=== PATIENT | female | born 1965 | race Caucasian/White ===

== ENCOUNTER 2016-11-30 18:19 | Emergency (ER) | payer BC ==
[~2016-11-30] VITALS: Ht 165.1 cm; Wt 88.0 kg
[~2016-11-30 18:19] MED LIST: BENICAR HCT 201 EACH PO; CIPRO500 MG PO; CRESTOR20 MG PO; HYDROCODON-ACE1 EAC7 PO; INVOKANA300 MG PO; JENTADUETO 2.51 EAC2 PO; PERCOCET 5/31 TABLET PO
[2016-11-30 22:03] LABS: ADD MIUA? YES; BILIRUBIN NEGATIVE; BLOOD SMALL; COLOR YELLOW ((YELLOW)); GLUCOSE (STRIP) >=500; KETONES 20; LEUKOCYTES LARGE; NITRITE NEGATIVE; PROTEIN (STRIP) NEGATIVE; SPECIFIC GRAVITY 1.033 (1.000-1.030); UROBILINOGEN 0.2 MG/DL (0.2-1.0)
[2016-11-30 22:05] LABS: HEMATOCRIT 42.8 % (36.0-46.0); MCH 28.7 PG (29.0-34.0); MCHC 33.4 G/DL (30.0-36.0); MCV 85.8 FL (83-99); MEAN PLAT.VOLUME 11.2 uM^3 (9.5-12.4); PLATELET COUNT 392 K/uL (156-360); RBC DIS.WIDTH-CV 11.5 % (11.8-14.6); RBC DIS.WIDTH-SD 35.9 % (39-53); RED BLOOD COUNT 4.99 M/uL (3.80-5.20); WHITE BLOOD COUNT 11.2 K/uL (4.1-10.2)
[2016-11-30 22:13] LABS: BACTERIA RARE /HPF; BUDDING YEAST 1+; EPITHELIAL CELLS 1+ /HPF; MUCUS NONE SEEN /LPF
[2016-11-30 22:19] LABS: CHLORIDE 98 mEq/L (99-109); SODIUM 136 mEq/L (136-147)
[2016-11-30 22:21] LABS: GLUCOSE 246 mg/dL (70-99)
[2016-11-30 22:22] LABS: ANION GAP 15 MEQ/L (2-14)
[2016-11-30 22:23] LABS: TOTAL BILIRUBIN 0.4 mg/dL (0.0-1.0)
[2016-11-30 22:24] LABS: ALKALINE PHOSPHATASE 101 IU/L (3-129)
[2016-11-30 22:25] LABS: GFR ESTIMATE (CALCULATED) 55 mL/min/
[2016-11-30 22:26] LABS: UREA NITROGEN (BUN) 21 mg/dL (9-23)
[2016-12-01] MEDS ORDERED: NYSTATIN60 GM TP (00:17)
[2016-12-01] MEDS ORDERED: VIBRAMYCIN100 MG PO (00:17)
[2016-12-01 00:39] VITALS: BP 152/890
[2016-12-02] MEDS ORDERED: FIORICET,ESG1 TABLET PO (19:02)
[2016-12-02] MEDS ORDERED: TOPAMAX50 MG PO (19:03)
[2016-12-02] MEDS ORDERED: PRINZIDE 20-121 EACH PO (19:03)
[2016-12-02] MEDS ORDERED: INVOKAMET 150-1 EACH PO (19:10)
== END 2016-12-01 00:41 | disposition home or self-care (01) ==
LOC: EME 18:19
PROVIDERS: Nurse Practitioner Family
DX: E11.628 Type 2 diabetes mellitus with other skin complications (principal); L03.113 Cellulitis of right upper limb; E11.65 Type 2 diabetes mellitus with hyperglycemia; B37.89 Other sites of candidiasis; R00.0 Tachycardia, unspecified; I10 Essential (primary) hypertension; E78.5 Hyperlipidemia, unspecified; Z79.84 Long term (current) use of oral hypoglycemic drugs; Z88.0 Allergy status to penicillin
CPT/HCPCS: 80053; 81003; 83605; 85027; 87040; 87077; 87186; 87801; 99281; 99284; J1885; J7030

== ENCOUNTER 2016-12-01 22:29 | Inpatient (IN) | payer BC ==
[~2016-12-01] VITALS: Ht 165.1 cm; Wt 87.5 kg
[~2016-12-01 22:29] MED LIST changes: +NYSTATIN60 GM TP; +VIBRAMYCIN100 MG PO
[2016-12-02 00:24] LABS: BASOPHIL COUNT 0.1 K/uL (0-0.1); EOSINOPHIL (%) 2.2 % (0-5); EOSINOPHIL COUNT 0.3 K/uL (0-0.3); HEMATOCRIT 37.3 % (36.0-46.0); IMMATURE GRANULOCYTE (%) 0.6 % (0.0-0.7); IMMATURE GRANULOCYTE COUNT 0.1 K/uL; INSTRUMENT ABS NEUTROPHIL CT 7.5 K/uL; LYMPHOCYTE COUNT 2.5 K/uL (1.0-2.8); MCH 28.8 PG (29.0-34.0); MCHC 33.8 G/DL (30.0-36.0); MCV 85.2 FL (83-99); MEAN PLAT.VOLUME 11.2 uM^3 (9.5-12.4); MONOCYTE (%) 8.4 % (3-12); NEUTROPHIL (%) 66.3 % (45-76); NEUTROPHIL COUNT 7.5 K/uL (1.8-6.4); PLATELET COUNT 364 K/uL (156-360); RBC DIS.WIDTH-CV 11.5 % (11.8-14.6); RBC DIS.WIDTH-SD 35.6 % (39-53); RED BLOOD COUNT 4.38 M/uL (3.80-5.20); WHITE BLOOD COUNT 11.3 K/uL (4.1-10.2)
[2016-12-02 00:37] LABS: CHLORIDE 100 mEq/L (99-109); POTASSIUM 3.7 mEq/L (3.7-5.4); SODIUM 134 mEq/L (136-147)
[2016-12-02 00:39] LABS: GLUCOSE 338 mg/dL (70-99)
[2016-12-02 00:41] LABS: ANION GAP 12 MEQ/L (2-14)
[2016-12-02 00:43] LABS: GFR ESTIMATE (CALCULATED) 55 mL/min/
[2016-12-02 00:44] LABS: UREA NITROGEN (BUN) 26 mg/dL (9-23)
[2016-12-02 03:52] LABS: POINT-OF-CARE METER ID UU13113702
[2016-12-02 05:00] VITALS: BP 105/62
[2016-12-02 07:17] LABS: POINT-OF-CARE METER ID UU14188577
[2016-12-02 08:04] VITALS: BP 138/82
[2016-12-02 11:08] VITALS: BP 135/85
[2016-12-02 15:50] VITALS: BP 127/83
[2016-12-02 16:44] LABS: POINT-OF-CARE METER ID UU14188577
[2016-12-02] MEDS ORDERED: FIORICET,ESG1 TABLET PO (19:02)
[2016-12-02] MEDS ORDERED: TOPAMAX50 MG PO (19:03)
[2016-12-02] MEDS ORDERED: PRINZIDE 20-121 EACH PO (19:03)
[2016-12-02] MEDS ORDERED: INVOKAMET 150-1 EACH PO (19:10)
[2016-12-02 20:00] VITALS: BP 144/88
[2016-12-02 23:55] VITALS: BP 112/57
[2016-12-03 08:15] VITALS: BP 129/67
[2016-12-03] MEDS ORDERED: ZOCOR40 MG PO (11:52)
[2016-12-03 15:51] VITALS: BP 137/86
[2016-12-03 21:53] LABS: POINT-OF-CARE METER ID UU14149397
[2016-12-03 23:48] VITALS: BP 122/74
[2016-12-04 07:02] LABS: POINT-OF-CARE METER ID UU14188577
[2016-12-04 07:47] VITALS: BP 127/79
[2016-12-04 11:54] LABS: POINT-OF-CARE METER ID UU14188577
[2016-12-04] MEDS ORDERED: INVOKAMET 150-1 EACH PO (12:11)
[2016-12-04 15:54] VITALS: BP 132/80
[2016-12-04 17:35] LABS: POINT-OF-CARE METER ID UU14188577
[2016-12-04 22:02] LABS: POINT-OF-CARE METER ID UU14188577
[2016-12-04 23:10] VITALS: BP 135/76
[2016-12-05 06:47] LABS: POINT-OF-CARE METER ID UU14162508
[2016-12-05 08:05] VITALS: BP 116/73
[2016-12-05 12:00] LABS: POINT-OF-CARE METER ID UU14162508
[2016-12-05] MEDS ORDERED: TRIAMCINOLONE A15 GM TP (14:20)
[2016-12-05] MEDS ORDERED: PREDNISONE10 MG PO (14:20)
[2016-12-05] MEDS ORDERED: KETOCONAZOLE60 GM TP (14:21)
[2016-12-05] MEDS ORDERED: CIPRO750 MG PO (14:22)
== END 2016-12-05 14:42 | disposition home or self-care (01) | DRG 868 ==
LOC: EME 22:29 → EDOF 12-02 02:05 → 3EAST 12-02 02:05 → 2EAST 12-04 22:55
PROVIDERS: Emergency Medicine; Internal Medicine
DX: B49 Unspecified mycosis (principal); B96.5 Pseudomonas (aeruginosa) (mallei) (pseudomallei) as the cause of diseases classified elsewhere; L03.113 Cellulitis of right upper limb; I10 Essential (primary) hypertension; L73.9 Follicular disorder, unspecified; M54.2 Cervicalgia; Z88.0 Allergy status to penicillin; R51 Headache; E11.65 Type 2 diabetes mellitus with hyperglycemia; E78.5 Hyperlipidemia, unspecified; E66.9 Obesity, unspecified; Z68.32 Body mass index [BMI] 32.0-32.9, adult; Z91.19 Patient's noncompliance with other medical treatment and regimen; B35.2 Tinea manuum
CPT/HCPCS: 73090; 73130; 80048; 80053; 81003; 82948; 83605; 85025; 85027; 87040; 87077; 87186; 87801; 99281; 99284; 99285; J0692; J1200; J1650; J1815; J1885; J2765; J2920; J7030; J7050; J7512; Q0177; S0073

== ENCOUNTER 2016-12-12 10:04 | Inpatient (IN) | payer BC ==
[~2016-12-12] VITALS: Ht 165.1 cm; Wt 78.9 kg
[~2016-12-12 10:04] MED LIST changes: +CIPRO750 MG PO; +FIORICET,ESG1 TABLET PO; +INVOKAMET 150-1 EACH PO; +KETOCONAZOLE60 GM TP; +PREDNISONE10 MG PO; +PRINZIDE 20-121 EACH PO; +TOPAMAX50 MG PO; +TRIAMCINOLONE A15 GM TP; +ZOCOR40 MG PO
[2016-12-12 12:03] LABS: HEMATOCRIT 45.7 % (36.0-46.0); MCH 28.5 PG (29.0-34.0); MCHC 33.7 G/DL (30.0-36.0); MCV 84.5 FL (83-99); MEAN PLAT.VOLUME 11.5 uM^3 (9.5-12.4); PLATELET COUNT 490 K/uL (156-360); RBC DIS.WIDTH-CV 11.6 % (11.8-14.6); RBC DIS.WIDTH-SD 35.1 % (39-53); RED BLOOD COUNT 5.41 M/uL (3.80-5.20); WHITE BLOOD COUNT 16.6 K/uL (4.1-10.2)
[2016-12-12 12:13] LABS: CHLORIDE 94 mEq/L (99-109); POTASSIUM 5.4 mEq/L (3.7-5.4); SODIUM 132 mEq/L (136-147)
[2016-12-12 12:17] LABS: ANION GAP 17 MEQ/L (2-14)
[2016-12-12 12:18] LABS: TOTAL BILIRUBIN 0.7 mg/dL (0.0-1.0)
[2016-12-12 12:19] LABS: ALKALINE PHOSPHATASE 103 IU/L (3-129); GFR ESTIMATE (CALCULATED) 36 mL/min/
[2016-12-12 12:20] LABS: UREA NITROGEN (BUN) 47 mg/dL (9-23)
[2016-12-12 12:23] LABS: GLUCOSE 414 mg/dL (70-99)
[2016-12-12 14:43] LABS: POINT-OF-CARE METER ID UU13113702
[2016-12-12] MEDS ORDERED: JENTADUETO 2.51 EAC2 PO (15:16)
[2016-12-12] MEDS ORDERED: CIPROFLOXACIN750 MG PO (15:17)
[2016-12-12] MEDS ORDERED: DEXILANT60 MG PO (15:19)
[2016-12-12] MEDS ORDERED: ONDANSETRON HCL4 MG PO (15:20)
[2016-12-12 17:30] VITALS: BP 121/85
[2016-12-12 19:45] VITALS: BP 111/64
[2016-12-12 21:53] LABS: POINT-OF-CARE METER ID UU13113725
[2016-12-12 23:20] VITALS: BP 105/59
[2016-12-13 04:10] VITALS: BP 120/84
[2016-12-13 06:22] LABS: POINT-OF-CARE METER ID UU13113725
[2016-12-13 06:39] LABS: HEMATOCRIT 39.8 % (36.0-46.0); MCH 29.3 PG (29.0-34.0); MCHC 34.4 G/DL (30.0-36.0); MEAN PLAT.VOLUME 11.7 uM^3 (9.5-12.4); PLATELET COUNT 377 K/uL (156-360); RBC DIS.WIDTH-CV 11.7 % (11.8-14.6); RBC DIS.WIDTH-SD 35.6 % (39-53); RED BLOOD COUNT 4.68 M/uL (3.80-5.20); WHITE BLOOD COUNT 13.3 K/uL (4.1-10.2)
[2016-12-13 07:10] VITALS: BP 123/84
[2016-12-13 07:18] LABS: ALKALINE PHOSPHATASE 81 IU/L (3-129); ANION GAP 11 MEQ/L (2-14); SAMPLE HEMOLYSIS CHECK 0; SAMPLE ICTERIC CHECK 0; SAMPLE LIPEMIA CHECK 0; SODIUM 131 MEQ/L (136-147); TOTAL BILIRUBIN 0.5 MG/DL (0.0-1.0); UREA NITROGEN (BUN) 32 mg/dL (9-23)
[2016-12-13 07:22] LABS: GFR ESTIMATE (CALCULATED) > 59 mL/min/; GLUCOSE 137 mg/dL (70-99)
[2016-12-13 07:23] LABS: CHLORIDE 98 MEQ/L (99-109); POTASSIUM 4.3 MEQ/L (3.7-5.4)
[2016-12-13 10:40] VITALS: BP 131/82
[2016-12-13 11:46] LABS: POINT-OF-CARE METER ID UU13113725
[2016-12-13 16:05] LABS: POINT-OF-CARE METER ID UU13113725
[2016-12-13 16:12] VITALS: BP 114/76
[2016-12-13 19:06] VITALS: BP 99/54
[2016-12-13 21:02] LABS: POINT-OF-CARE METER ID UU13113725
[2016-12-13 22:49] VITALS: BP 101/55
[2016-12-14 03:00] VITALS: BP 98/57
[2016-12-14 07:06] VITALS: BP 97/59
[2016-12-14 11:15] VITALS: BP 100/61
[2016-12-14 11:37] LABS: POINT-OF-CARE METER ID UU13113725
[2016-12-14 15:57] VITALS: BP 95/54
[2016-12-15 00:08] VITALS: BP 109/58
[2016-12-15 06:50] VITALS: BP 120/69
[2016-12-15 07:25] LABS: HEMATOCRIT 34.7 % (36.0-46.0); MCH 28.9 PG (29.0-34.0); MCHC 34.3 G/DL (30.0-36.0); MCV 84.2 FL (83-99); MEAN PLAT.VOLUME 11.3 uM^3 (9.5-12.4); PLATELET COUNT 308 K/uL (156-360); RBC DIS.WIDTH-CV 11.4 % (11.8-14.6); RBC DIS.WIDTH-SD 34.8 % (39-53); RED BLOOD COUNT 4.12 M/uL (3.80-5.20); WHITE BLOOD COUNT 9.1 K/uL (4.1-10.2)
[2016-12-15 07:27] LABS: POINT-OF-CARE METER ID UU13113725
[2016-12-15 08:23] LABS: ALKALINE PHOSPHATASE 75 IU/L (3-129); ANION GAP 11 MEQ/L (2-14); CHLORIDE 102 MEQ/L (99-109); GFR ESTIMATE (CALCULATED) > 59 mL/min/; POTASSIUM 4.3 MEQ/L (3.7-5.4); SAMPLE HEMOLYSIS CHECK 0; SAMPLE ICTERIC CHECK 0; SAMPLE LIPEMIA CHECK 0; SODIUM 132 MEQ/L (136-147); TOTAL BILIRUBIN 0.4 MG/DL (0.0-1.0); UREA NITROGEN (BUN) 14 mg/dL (9-23)
[2016-12-15 08:25] LABS: GLUCOSE 97 mg/dL (70-99)
[2016-12-15 11:05] VITALS: BP 110/60
[2016-12-15 11:35] LABS: POINT-OF-CARE METER ID UU13113725
[2016-12-15 22:07] LABS: POINT-OF-CARE METER ID UU13113725
[2016-12-16 00:08] VITALS: BP 122/76
[2016-12-16 07:07] VITALS: BP 121/67
[2016-12-16 15:00] VITALS: BP 118/65
[2016-12-16 22:58] VITALS: BP 104/59
[2016-12-17 07:10] VITALS: BP 117/60
[2016-12-17] MEDS ORDERED: SERTRALINE HCL100 MG PO (13:17)
[2016-12-17] MEDS ORDERED: FLUCONAZOLE100 MG PO (13:17)
[2016-12-17] MEDS ORDERED: LEVOFLOXACIN500 MG PO (13:17)
[2016-12-17] MEDS ORDERED: NOVOLOG PE100 UNITS/ SC (13:22)
[2016-12-17] MEDS ORDERED: [UNRECOGNIZED DRUG - SUPPLY] MC (13:23)
[2016-12-17] MEDS ORDERED: NOVOFINE PLUS1 EACH MC (13:24)
[2016-12-17] MEDS ORDERED: CEFDINIR300 MG PO (13:24)
[2016-12-17] MEDS ORDERED: NOVOLOG MI100 UNIT/M SC (14:57)
== END 2016-12-17 15:32 | disposition home or self-care (01) | DRG 871 ==
LOC: EME 10:04 → 5EAST 15:40 → EDOF 15:40 → 5EAST 17:28
PROVIDERS: Emergency Medicine; Internal Medicine
DX: A41.52 Sepsis due to Pseudomonas (principal); E11.00 Type 2 diabetes mellitus with hyperosmolarity without nonketotic hyperglycemic-hyperosmolar coma (NKHHC); E87.1 Hypo-osmolality and hyponatremia; L03.113 Cellulitis of right upper limb; N17.9 Acute kidney failure, unspecified; E27.40 Unspecified adrenocortical insufficiency; L73.8 Other specified follicular disorders; E78.5 Hyperlipidemia, unspecified; E86.0 Dehydration; I10 Essential (primary) hypertension; L30.4 Erythema intertrigo; B36.9 Superficial mycosis, unspecified; I95.9 Hypotension, unspecified; E66.9 Obesity, unspecified; M25.441 Effusion, right hand; Z91.19 Patient's noncompliance with other medical treatment and regimen; Z68.28 Body mass index [BMI] 28.0-28.9, adult; Z88.0 Allergy status to penicillin; Z79.84 Long term (current) use of oral hypoglycemic drugs; Z83.3 Family history of diabetes mellitus; Z82.49 Family history of ischemic heart disease and other diseases of the circulatory system
CPT/HCPCS: 36415; 73220; 80053; 82948; 83735; 85025; 85027; 99281; 99285; J0696; J1650; J1815; J1956; J7030; J7050